=== PATIENT | male | born 1980 ===

== ENCOUNTER 2016-12-17 12:31 | Outpatient (CLI) | payer OTHER ==
[2016-12-17 12:57] LABS: ALT (SGPT) 30 U/L (8-55); AST (SGOT) 17 U/L (5-34); Alkaline Phosphatase 51 U/L (40-150); Anion Gap 19 mmol/L (10-20); BUN (Urea Nitrogen) 11 mg/dL (8.9-20.6); Bilirubin, Total 0.9 mg/dL (0.2-1.2); Calc. Creatinine Clearance 0 mL/min (70-130); Calcium 9.9 mg/dL (7.8-10.44); Carbon Dioxide 25 mmol/L (22-29); Chloride 100 mmol/L (98-107); Estimated GFR-MDRD 75; Glucose 99 mg/dL (70-105); Potassium 3.9 mmol/L (3.5-5.1); Sodium 140 mmol/L (136-145)
[2016-12-17 13:08] LABS: Albumin 4.7 g/dL (3.5-5.0)
[2016-12-17 13:58] LABS: Follow-up Chemistry Comp? YES; Follow-up Result - Chemistry REPORT FAXED
== END 2016-12-17 12:32 | disposition home or self-care (01) ==
LOC: NAV LABSP 12:31
PROVIDERS: ATTEND Nurse Practitioner Adult Health
DX: R79.9 Abnormal finding of blood chemistry, unspecified (principal)
CPT/HCPCS: 80048; 82040; 82247; 82947; 84075; 84450; 84460